=== PATIENT | female | born 1935 | race Caucasian/White ===

== ENCOUNTER 2016-12-17 23:45 | Inpatient (IN) | payer MEDICARE ==
--- NOTE | ~2016-12-17 | DS ---
Discharge Summary [facility] [address] [place]. [address] NAME: CAPRICE COY : 35 STATUS : DIS IN PAT#: [id number] AGE: 81 ADM/REG DATE : 12/18/16 MR#: [id number] REPORT SERV DATE: 12/23/16 DICTATED BY: ANUJ ZHANG DATE: 12/23/16 REPORT STATUS : Draft TRANSCRIBED BY: MODL DATE: 12/23/16 ADMISSION DATE: 12/18/2016 DISCHARGE DATE: 12/22/2016 DISCHARGE DIAGNOSES: 1. Atrial fibrillation with rapid ventricular response, metastatic melanoma with metastases to the liver, lungs, and possibly brain. 2. Acute renal failure with uremia. 3. Toxic metabolic encephalopathy. 4. Coagulopathy secondary to metastatic disease. 5. History of congestive heart failure. 6. Atrial fibrillation with rapid ventricular response. 7. Prosthetic Saint Sincere's heart valve. 8. Hypertension. CONSULTANTS DURING THIS HOSPITALIZATION: Dr. Mt Wilcox of Oncology. Dr. Riddhi Odom of Critical Care Medicine. INVASIVE PROCEDURES DONE DURING THIS HOSPITALIZATION: None. BRIEF HISTORY OF PRESENT ILLNESS: The patient is an 81-year-old female who was brought in because of abdominal pain, with weakness, somnolence, and spending a lot of time in bed. For detailed history and physical exam, please see note dictated by Dr. Jose D Craft on 12/17/2016. HOSPITAL COURSE: After being admitted to the hospital, this patient was observed. Her heart rate was controlled with using IV amiodarone and then switched to oral amiodarone. She was not a good candidate for anticoagulation. A 2-dimensional echocardiogram was done, which showed a fairly normal ejection fraction. However, this patient's overall condition was very poor. She had metastatic melanoma. She became more and more confused and encephalopathic what appeared to be uremic. Her BUN was climbed up to 77. Her creatinine went up to 1.7. Her potassium was 5.5. She continued to decline. I had a long discussion with Dr. Mt Wilcox regarding her care, and at that time, it was thought that hospice was the best option. We could not do an MRI of her brain because of pacemaker. CT of the brain was not done to look for any metastasis of the brain as if it was considered that this patient would be best served in hospice. Hospice was consulted. The patient was accepted in hospice and has been transferred to the [facility]. BRAF gene and PD-L1 mutation genes are still pending and Dr. Wilcox will follow those up. In case if this patient is positive, there may be some room to start her on immunotherapy. This patient when transferred to hospice was terminally ill. DISPOSITION: To hospice. ACTIVITY: As tolerated. DISCHARGE DIET: As tolerated. Discharge Summary [address] [address] NAME: CAPRICE COY : 35 STATUS : DIS IN PAT#: [id number] AGE: 81 ADM/REG DATE : 12/18/16 MR#: [id number] REPORT SERV DATE: 12/23/16 DICTATED BY: ANUJ ZHANG DATE: 12/23/16 REPORT STATUS : Draft TRANSCRIBED BY: QUANG DATE: 12/23/16 DISCHARGE MEDICATIONS: Will be deferred to hospice. FOLLOWUP: Will be by [facility]. More than 30 minutes spent planning this patient's discharge, discussing with the family regarding hospice and arranging hospice. DICTATED BY: Fletcher Pastrana/QUANG Anuj Zhang M.D. / [id number] CC: Fletcher Pastrana PA Darrell Johnson, M.D.
--- NOTE | ~2016-12-17 | CN ---
Consultation Report [facility] [address] [place]. [address] NAME: CARLY LOWE : 35 STATUS : REG ER PAT#: [id number] AGE: 81 ADM/REG DATE : 12/17/16 MR#: [id number] REPORT SERV DATE: 12/18/16 DICTATED BY: EVIE RUBALCAVA DATE: 12/18/16 REPORT STATUS : Draft TRANSCRIBED BY: MODL DATE: 12/18/16 PULMONARY CRITICAL CARE MEDICINE CONSULTATION DATE OF CONSULTATION: 12/18/2016 I was asked to assess Carly Lowe for ICU admission by BALDOMERO Julien the physician assist in the emergency department. Ms. Lowe is a very pleasant 81-year-old lady with underlying metastatic melanoma who was scheduled to have a right inguinal node excision with Dr. Champion in the near future. She presented to the emergency department tonight along with her daughter and son-in-law after having experienced around one week of bedridden state with increased confusion, abdominal pain, swelling, generalized weakness, and decreased urine output. She was seen by the emergency department treatment team who worked her up for possible etiologies of abdominal pain as well as basic lab work to evaluate some of her other symptoms. She was found to be anemic, hyperkalemic with acute kidney injury which appears pre-renal in nature, likely superimposed on to some degree of chronic kidney disease. She has elevated transaminases and was markedly coagulopathic with an INR of 14.2. Of note, she is on Coumadin although her family reports that it has been very difficult to regulate her Coumadin in the last few weeks due to erratic INR readings. She was awaiting cardiology clearance with Dr. Patricio Ward at [facility] to undergo her lymph node dissection with Dr. Champion, and her Coumadin is managed through that clinic. She also underwent a CT scan of the abdomen and pelvis, evaluating for sources of abdominal pain, and the radiologist's report reflected that she had new finding of diffuse metastatic disease throughout the liver as well as in the bases of the lungs in addition to the adenopathy in her abdomen which was already documented on prior scans. Of note, her PET scan performed in August was read as being negative for liver mets, and her lungs were also clear. She did have some hemorrhage within one of the larger metastatic lesions in her liver presumably secondary to her coagulopathy. She was started on Cardizem infusion for atrial fibrillation with RVR by the emergency department treatment team, and her ventricular rate was better controlled after initiation of therapy with heart rate ranging from 80 to 110 during my visit. After explaining the results of the CT scan to Ms. Lowe as well as her daughter and son-in law, we did begin a conversation with regard to overall prognosis and goals of care. Certainly her new finding of diffuse metastatic disease within the liver and lungs would likely disqualify her from undergoing any lymph node excision surgery as she is now at a stage IV. In light of her recent confusion and some facial droop, there was also question of metastatic disease in the brain, and I have recommended an MRI to further assess tomorrow. We explored the concept of DNR, and Ms. Lowe as well as her daughter were in agreement that this would be the most appropriate choice in light of the new findings on her CT scan, and Dr. Fagan and I both cosigned full DNR form this evening. We discussed the concept of palliative chemotherapy, and the plan is to consult Dr. Jiménez to assess tomorrow morning whether she may be a candidate for palliative chemo options. I did explain to Ms. Lowe that in light of the fact that she has been unable to get out of the bed for the last week that her ECOG status may not be compatible with undergoing cytotoxic therapy, and we Consultation Report [address] [place]. [address] NAME: CARLY LOWE : 35 STATUS : REG ER PAT#: [id number] AGE: 81 ADM/REG DATE : 12/17/16 MR#: [id number] REPORT SERV DATE: 12/18/16 DICTATED BY: EVIE RUBALCAVA DATE: 12/18/16 REPORT STATUS : Draft TRANSCRIBED BY: MODL DATE: 12/18/16 did introduce the concept of hospice as an option for treatment. Ms. Lowe and her daughter were open to this concept, and we did discuss the various levels of a hospice care and the way that referral process works in the inpatient setting. Ms. Lowe's daughter has expressed an interest in meeting with Dr. Gan and the palliative care team on Monday in addition to meeting with Dr. Jiménez to discuss potential treatment options. They have also asked for a consult to be placed to the sheet hanger to see her tomorrow. Case was discussed with Hugo Roland as well as Dr. Fagan in the emergency department and doctors Luana and Silva from [facility] who will now be admitting the patient to a private room on the floor to undergo ongoing management and workup including a brain MRI, ongoing rate control for atrial fibrillation (Dr. Garcias was consulted by Hugo Roland in the emergency department this evening, is aware of her case), and additional medical management as appropriate. She is a full DNR, and that order has been placed on the chart. Critical Care Medicine will sign off and be available for re-evaluation on an as-needed basis. Please call if we may be of additional assistance. TAMAR/QUANG Evie Rubalcava MD / [id number] CC: BALDOMERO Julien
--- NOTE | ~2016-12-17 | HP ---
History And Physical [place] [id number] [facility] [place]. [address] NAME: CAPRICE LOWE : 35 STATUS : REG ER PAT#: [id number] AGE: 81 ADM/REG DATE : 12/17/16 MR#: [id number] REPORT SERV DATE: 12/18/16 DICTATED BY: MICHELE RODRIGUEZ DATE: 12/18/16 REPORT STATUS : Draft TRANSCRIBED BY: MODL DATE: 12/18/16 DATE OF ADMISSION: 12/17/2016 CHIEF COMPLAINT: Abdominal pain. HISTORY OF PRESENT ILLNESS: This is an 81-year-old female with extensive metastatic melanoma, metastatic disease to the liver and lungs, who started having increasing pain in her abdomen to the point that family decided to bring her to the emergency room. She is under the care of Dr. Mt Wilcox and Dr. Champion, from Oncology for her melanoma. History is obtained from the patient and her family at bedside. We also reviewed data available on the [employer] system. According to Mrs. Lowe who is a good historian, she had been having increasing abdominal pain, weakness, and somnolence and has been spending a lot of time in bed. In the last 24- 36 hours, the pain has become quite severe, and she has severe pain even turning from side to side. The family decided to bring her to the emergency room to be evaluated. In the emergency room, initial workup revealed that she had atrial fibrillation with rapid ventricular response along with significant metastatic disease to the liver and lungs. She has some encephalopathy during this time, and she might have some metastatic disease to the brain. She also had acute renal failure, anemia, and coagulopathy probably secondary to her metastatic disease. Hospitalist Service is asked to admit her for further evaluation and treatment. Actually they had called palliative care consultation, and Dr. Odom, from Critical Care Medicine has seen the patient, discussed her status with her daughter and son- in-law who are at bedside. The patient was subsequently made do not resuscitate, and hospitalist was called to admit the patient. At the time of my evaluation, Mrs. Lowe was alert and awake, oriented, she was quite tearful. She did have considerable abdominal pain even after she got some narcotic from the ER. She denied any chest pain. She denied any orthopnea. She did not have any cough, hemoptysis, night sweats, or weight loss. She has not had any recent falls or loss of consciousness. She has not had any fevers or chills. No nausea or vomiting. No other bleeding from anywhere at this point. PAST MEDICAL HISTORY: Significant for history of metastatic melanoma with metastatic disease to liver and lung, possibly other places. She has a history of congestive heart failure with very low ejection fraction, history of prosthetic heart valve with a Saint Sincere's valve, history of pacemaker placement, scoliosis, hypertension, and hypercholesterolemia. SOCIAL HISTORY: She does not smoke, drink, or use recreational drugs. FAMILY HISTORY: Noncontributory. MEDICATIONS: Her medications at home were reviewed by me in the chart today and reordered by me. History And Physical [address] [address] NAME: CAPRICE LOWE : 35 STATUS : REG ER PAT#: [id number] AGE: 81 ADM/REG DATE : 12/17/16 MR#: [id number] REPORT SERV DATE: 12/18/16 DICTATED BY: MICHELE RODRIGUEZ DATE: 12/18/16 REPORT STATUS : Draft TRANSCRIBED BY: QUANG DATE: 12/18/16 REVIEW OF SYSTEMS: As in history of present illness. All other systems were reviewed in detail and are quite unremarkable. PHYSICAL EXAMINATION: GENERAL: This is a pleasant 81-year old, not in any acute distress. She is in quite a bit of discomfort due to her abdominal pain. HEENT: Her head appears to be atraumatic, normocephalic. Pupils are equal, reacting to light and accommodating. External ocular muscles are intact. Membranes are moist and pink. Sclerae are nonicteric. NECK: Supple with no jugular venous distention, lymphadenopathy, or thyromegaly. LUNGS: Clear to auscultation with no wheezes, rubs, or crackles. HEART: Heart sounds were irregularly irregular. ABDOMEN: Abdomen was soft but tenderness to palpation diffusely all over. EXTREMITIES: Extremities showed no cyanosis, clubbing, or edema. NEUROLOGIC: Grossly intact. No focal deficits. She was able to move all four extremities. VITAL SIGNS: Her temperature today was 98.2, pulse 143, respirations 18 a minute, her blood pressure was 111/67, oxygen saturations were 95%, breathing 2 L of oxygen via nasal cannula. LABORATORY DATA: Reviewed on the [employer] system showed a sodium of 137, potassium 5.5, chloride 99, CO2 of 27. BUN was 68 with a creatinine of 2.78. Her blood glucose was 90. Her alkaline phosphatase was 468 today. ALT was 355, AST 707. Lipase was 151. Troponin was 0.04, and lactate was 1.9. [place] [address], hemoglobin was 9.6, hematocrit 29.3, and platelet count was 260,000. Her prothrombin time was 104.2 with an INR of 14.2. Films of the CT scan of her abdomen and pelvis were reviewed by me on the PACS today and interpreted by me. Per my interpretation, there is diffuse hepatic and lung metastatic disease with hemoperitoneum. One of the liver lesions show intralesional hemorrhage as well. A 12-lead EKG done in emergency room was reviewed and interpreted by me. There is atrial fibrillation with rapid ventricular response at a rate of 130 per minute. There are no ST-T changes. IMPRESSION: 1. Atrial fibrillation with rapid ventricular response. 2. Altered mental status. 3. Metastatic melanoma with metastatic disease to liver, lung, and possibly the brain. 4. Acute renal failure. 5. Anemia. 6. Coagulopathy secondary to metastatic disease of the liver. 7. Congestive heart failure. 8. Prosthetic Saint Sincere's heart valve. 9. Hypertension. PLAN: We will admit Mrs. Lowe to the Hospitalist Service with telemetry. We will go ahead History And Physical [address] [address] NAME: CAPRICE LOWE : 35 STATUS : REG ER PAT#: [id number] AGE: 81 ADM/REG DATE : 12/17/16 MR#: [id number] REPORT SERV DATE: 12/18/16 DICTATED BY: MICHELE RODRIGUEZ DATE: 12/18/16 REPORT STATUS : Draft TRANSCRIBED BY: MODL DATE: 12/18/[address] Lindsay from Palliative Care who will be involved in the morning. The patient's family has agreed for DNR status. We will start her on IV fluids for volume resuscitation and start her on pain control with Dilaudid on an as-needed basis. We will also continue her Cardizem infusion for rapid ventricular response, it was started in the ER as per protocol. We will follow chemistry, CBC in the morning. We will also consult her oncologist, Dr. Mt Wilcox and Dr. Lindsay will be seeing her from palliative care standpoint. I have discussed the above plans with the patient and the family. They are in agreement to the above recommendations. Further recommendations will follow after Dr. Lindsay has had a chance to talk to them. Hospitalist Service will be following her during her stay here. /QUANG Michele Rodriguez M.D. / [id number] CC: BALDOMERO Julien
[~2016-12-17 23:45] MED LIST: *UNABLE2; C5 PO; CALTRA600D PO; CENTRUM TAB1 TAB PO; CITRACAL PO; COREG12 PO; JANTOVEN1 MG PO; JANTOVEN6 MG PO; KEPPRA500 PO; L40 PO; LIDODERM T; LISINOPRIL40 MG PO; LOP25 PO; LOP50 PO; LORTAB 5 PO; LOVENOX60 SC; MULTIPLE VIT PO; MULTIVIT/MIN PO; NEUR600 PO; NORCO1 TA1 PO; NORCO1 TA2 PO; OS500+D PO; OXYCON10 PO; OXYCON20 PO; PREMPRO1 TAB PO; PRILO PO; PROTONIX PO; SEROQUEL1C PO; SEROQUEL200 MG PO; SPIRO25 PO; VALTREX1 GM PO; ZOCOR20 PO; ZOL100 PO; ZOL50 PO
[2016-12-18 01:16] LABS: BASOPHILS 0.1 %; BASOPHILS ABSOLUTE 0.01 10/3/uL (0.0-0.16); EOSINOPHILS 0.1 %; EOSINOPHILS ABSOLUTE 0.01 10/3/uL (0.0-0.53); HEMOGLOBIN 9.6 g/dL (12.0-16.0); IMMATURE GRANULOCYTES 0.9 %; IMMATURE GRANULOCYTES ABSOLUTE 0.09 10/3/uL (0.0-0.11); LYMPHOCYTES 9.3 %; LYMPHOCYTES ABSOLUTE 0.93 10/3/uL (0.67-4.30); MEAN CORPUS HGB CONC 32.8 g/dL (32.0-36.0); MEAN PLATELET VOLUME 10.2 fL (9.2-13.0); MONOCYTES 8.6 %; MONOCYTES ABSOLUTE 0.86 10/3/uL (0.21-1.20); RBC DISTRIBUTION WIDTH 15.1 % (12.0-16.0); RED CELL COUNT 3.15 10/6/uL (4.0-5.6)
[2016-12-18 01:17] LABS: HEMATOCRIT 29.3 % (36.0-48.0); MANUAL DIFF NO %; MEAN CORPUSCULAR HEMOGLOB 30.5 pg (26.0-34.0); PLATELET COUNT 260 10/3/uL (150-400)
[2016-12-18 01:33] LABS: ALBUMIN 3.1 G/DL (3.5-5.0); ALKALINE PHOSPHATASE 468 U/L (45-117); BUN (BLOOD UREA NITROGEN) 68 MG/DL (6-23); CALCIUM, SERUM 8.5 MG/DL (8.5-10.4); CHLORIDE, SERUM 99 MMOL/L (96-112); CO2 (CARBON DIOXIDE) 27 MMOL/L (24-34); CREATININE 2.78 MG/DL (0.55-1.02); GFR AFRICAN AMERICAN 18 ML/MIN (>=60); GFR NON AFRICAN AMERICAN 15 ML/MIN (>=60); GLOBULIN 3.2 G/DL (2.5-4.1); GLUCOSE, SERUM 90 MG/DL (60-99); POTASSIUM, SERUM 5.5 MMOL/L (3.5-5.3); SGOT(AST) 707 U/L (5-40); SGPT(ALT) 355 U/L (5-65); SODIUM, SERUM 137 MMOL/L (135-148); TOTAL BILIRUBIN 1.3 MG/DL (0-1.2); TOTAL PROTEIN 6.3 G/DL (6.0-8.5); TROPONIN I 0.04 NG/ML (<0.05)
[2016-12-18 01:37] LABS: LACTATE 1.9 MMOL/L (0.3-2.4)
[2016-12-18 01:57] LABS: PARTIAL THROMBO TIME 83.9 SEC (22.5-37.2)
[2016-12-18 02:00] LABS: ASCORBIC ACID (UR NOT ORDER) NEG (NEG); BILIRUBIN, URINE NEGATIVE (NEG); ER URINALYSIS TAT 0 Hrs 00 Mins; KETONE, URINE NEGATIVE (NEG); LEUKOCYTE ESTERASE(NOT OR NEG (NEG); NITRITE (URINE) NEG (NEG); WBC (NOT ORDERED) (RFLEX) 1 (0-5)
[2016-12-18 02:00] LABS: INTERNATIONAL NORMAL RATI 14.2 UNITS (-); PROTIME (NOT ORD) 104.2 SEC (12.0-14.5)
[2016-12-19 06:03] LABS: INTERNATIONAL NORMAL RATI 1.5 UNITS (-)
[2016-12-19 06:04] LABS: PROTIME (NOT ORD) 17.9 SEC (12.0-14.5)
[2016-12-19 06:09] LABS: BASOPHILS 0.4 %; BASOPHILS ABSOLUTE 0.03 10/3/uL (0.0-0.16); EOSINOPHILS 0.4 %; EOSINOPHILS ABSOLUTE 0.03 10/3/uL (0.0-0.53); HEMATOCRIT 24.3 % (36.0-48.0); HEMOGLOBIN 7.9 g/dL (12.0-16.0); IMMATURE GRANULOCYTES ABSOLUTE 0.16 10/3/uL (0.0-0.11); LYMPHOCYTES ABSOLUTE 0.95 10/3/uL (0.67-4.30); MANUAL DIFF NO %; MEAN CORPUS HGB CONC 32.5 g/dL (32.0-36.0); MEAN CORPUSCULAR HEMOGLOB 30.3 pg (26.0-34.0); MEAN CORPUSCULAR VOLUME 93.1 fL (80-100); MEAN PLATELET VOLUME 10.3 fL (9.2-13.0); MONOCYTES 9.6 %; MONOCYTES ABSOLUTE 0.76 10/3/uL (0.21-1.20); NEUTROPHILS 75.6 %; NEUTROPHILS ABSOLUTE 5.96 10/3/uL (2.02-8.40); NUCLEATED RED BLOOD CELLS 1.4 /100WBC (0-0); PLATELET COUNT 190 10/3/uL (150-400); RBC DISTRIBUTION WIDTH 15.3 % (12.0-16.0); RED CELL COUNT 2.61 10/6/uL (4.0-5.6); WHITE BLOOD CELLS 7.9 10/3/uL (4.5-10.5)
[2016-12-19 06:17] LABS: A/G RATIO 0.9 (0.7-1.9); ALBUMIN 2.6 G/DL (3.5-5.0); CALCIUM, SERUM 7.7 MG/DL (8.5-10.4); CHLORIDE, SERUM 103 MMOL/L (96-112); GLOBULIN 2.9 G/DL (2.5-4.1); GLUCOSE, SERUM 105 MG/DL (60-99); POTASSIUM, SERUM 4.7 MMOL/L (3.5-5.3); SGOT(AST) 639 U/L (5-40); SGPT(ALT) 330 U/L (5-65); SODIUM, SERUM 135 MMOL/L (135-148); TOTAL BILIRUBIN 1.7 MG/DL (0-1.2); TOTAL PROTEIN 5.5 G/DL (6.0-8.5)
[2016-12-19 06:19] LABS: ALKALINE PHOSPHATASE 546 U/L (45-117); BUN (BLOOD UREA NITROGEN) 72 MG/DL (6-23); CO2 (CARBON DIOXIDE) 21 MMOL/L (24-34); CREATININE 2.19 MG/DL (0.55-1.02); GFR AFRICAN AMERICAN 24 ML/MIN (>=60); GFR NON AFRICAN AMERICAN 20 ML/MIN (>=60)
[2016-12-19] MEDS ORDERED: GABAPENTIN (17:27)
[2016-12-19] MEDS ORDERED: LASIX (17:27)
[2016-12-19] MEDS ORDERED: COREG (17:27)
[2016-12-19] MEDS ORDERED: NORCO (17:28)
[2016-12-19] MEDS ORDERED: KEPPRA (17:28)
[2016-12-19] MEDS ORDERED: LISINOPRIL (17:28)
[2016-12-19] MEDS ORDERED: *UNABLE2 (17:28)
[2016-12-19] MEDS ORDERED: SEROQUEL (17:29)
[2016-12-19] MEDS ORDERED: LOPRESSOR (17:29)
[2016-12-19] MEDS ORDERED: ZOCOR (17:29)
[2016-12-19] MEDS ORDERED: PRILOSEC (17:29)
[2016-12-19] MEDS ORDERED: ZOLOFT (17:29)
[2016-12-19] MEDS ORDERED: SPIRONOLACTONE (17:29)
[2016-12-19] MEDS ORDERED: WARFARIN (17:30)
[2016-12-20 08:32] LABS: INTERNATIONAL NORMAL RATI 1.3 UNITS (-); PROTIME (NOT ORD) 16.2 SEC (12.0-14.5)
[2016-12-20 08:37] LABS: BASOPHILS 0.2 %; BASOPHILS ABSOLUTE 0.02 10/3/uL (0.0-0.16); EOSINOPHILS 0.1 %; EOSINOPHILS ABSOLUTE 0.01 10/3/uL (0.0-0.53); HEMOGLOBIN 9.1 g/dL (12.0-16.0); IMMATURE GRANULOCYTES 2.3 %; IMMATURE GRANULOCYTES ABSOLUTE 0.25 10/3/uL (0.0-0.11); LYMPHOCYTES 7.3 %; MEAN CORPUS HGB CONC 31.8 g/dL (32.0-36.0); MEAN CORPUSCULAR VOLUME 94.4 fL (80-100); MEAN PLATELET VOLUME 10.2 fL (9.2-13.0); MONOCYTES 5.8 %; MONOCYTES ABSOLUTE 0.64 10/3/uL (0.21-1.20); NEUTROPHILS 84.3 %; NEUTROPHILS ABSOLUTE 9.24 10/3/uL (2.02-8.40); PLATELET COUNT 189 10/3/uL (150-400); RBC DISTRIBUTION WIDTH 16.4 % (12.0-16.0); RED CELL COUNT 3.03 10/6/uL (4.0-5.6)
[2016-12-20 08:38] LABS: HEMATOCRIT 28.6 % (36.0-48.0); MANUAL DIFF NO %
[2016-12-20 08:43] LABS: A/G RATIO 0.9 (0.7-1.9); ALBUMIN 2.5 G/DL (3.5-5.0); CALCIUM, SERUM 8.4 MG/DL (8.5-10.4); CHLORIDE, SERUM 104 MMOL/L (96-112); CO2 (CARBON DIOXIDE) 20 MMOL/L (24-34); GLOBULIN 2.9 G/DL (2.5-4.1); GLUCOSE, SERUM 117 MG/DL (60-99); PHOSPHORUS, SERUM 2.9 MG/DL (2.5-4.5); SGPT(ALT) 303 U/L (5-65); SODIUM, SERUM 134 MMOL/L (135-148); TOTAL PROTEIN 5.4 G/DL (6.0-8.5)
[2016-12-20 08:44] LABS: ALKALINE PHOSPHATASE 649 U/L (45-117); BUN (BLOOD UREA NITROGEN) 57 MG/DL (6-23); CREATININE 1.33 MG/DL (0.55-1.02); GFR AFRICAN AMERICAN 43 ML/MIN (>=60); GFR NON AFRICAN AMERICAN 37 ML/MIN (>=60); TOTAL BILIRUBIN 2.8 MG/DL (0-1.2)
[2016-12-20 09:01] LABS: PLATELET ESTIMATE ADQ (ADEQUATE); RBC MORPHOLOGY NORM (NORMAL)
[2016-12-20 09:04] LABS: SGOT(AST) 498 U/L (5-40)
[2016-12-21 06:19] LABS: BASOPHILS 0.3 %; BASOPHILS ABSOLUTE 0.03 10/3/uL (0.0-0.16); EOSINOPHILS 0.1 %; EOSINOPHILS ABSOLUTE 0.01 10/3/uL (0.0-0.53); HEMATOCRIT 30.7 % (36.0-48.0); IMMATURE GRANULOCYTES 2.8 %; IMMATURE GRANULOCYTES ABSOLUTE 0.33 10/3/uL (0.0-0.11); INTERNATIONAL NORMAL RATI 1.4 UNITS (-); LYMPHOCYTES 11.4 %; LYMPHOCYTES ABSOLUTE 1.35 10/3/uL (0.67-4.30); MANUAL DIFF NO %; MEAN CORPUS HGB CONC 32.6 g/dL (32.0-36.0); MEAN CORPUSCULAR HEMOGLOB 31.1 pg (26.0-34.0); MEAN CORPUSCULAR VOLUME 95.3 fL (80-100); MEAN PLATELET VOLUME 10.9 fL (9.2-13.0); MONOCYTES 9.4 %; MONOCYTES ABSOLUTE 1.11 10/3/uL (0.21-1.20); NEUTROPHILS ABSOLUTE 8.99 10/3/uL (2.02-8.40); PLATELET COUNT 187 10/3/uL (150-400); PROTIME (NOT ORD) 16.9 SEC (12.0-14.5); RBC DISTRIBUTION WIDTH 17.6 % (12.0-16.0); RED CELL COUNT 3.22 10/6/uL (4.0-5.6); WHITE BLOOD CELLS 11.8 10/3/uL (4.5-10.5)
[2016-12-21 06:29] LABS: A/G RATIO 0.9 (0.7-1.9); ALBUMIN 2.5 G/DL (3.5-5.0); CALCIUM, SERUM 8.4 MG/DL (8.5-10.4); CHLORIDE, SERUM 106 MMOL/L (96-112); CO2 (CARBON DIOXIDE) 18 MMOL/L (24-34); CREATININE 1.57 MG/DL (0.55-1.02); GFR AFRICAN AMERICAN 35 ML/MIN (>=60); GFR NON AFRICAN AMERICAN 31 ML/MIN (>=60); GLOBULIN 2.8 G/DL (2.5-4.1); GLUCOSE, SERUM 97 MG/DL (60-99); PHOSPHORUS, SERUM 3.5 MG/DL (2.5-4.5); POTASSIUM, SERUM 5.1 MMOL/L (3.5-5.3); SGOT(AST) 604 U/L (5-40); SGPT(ALT) 377 U/L (5-65); SODIUM, SERUM 136 MMOL/L (135-148); TOTAL BILIRUBIN 2.8 MG/DL (0-1.2); TOTAL PROTEIN 5.3 G/DL (6.0-8.5)
[2016-12-21 06:31] LABS: ALKALINE PHOSPHATASE 589 U/L (45-117); BUN (BLOOD UREA NITROGEN) 67 MG/DL (6-23)
[2016-12-22 05:46] LABS: A/G RATIO 0.9 (0.7-1.9); ALBUMIN 2.6 G/DL (3.5-5.0); CALCIUM, SERUM 8.6 MG/DL (8.5-10.4); CHLORIDE, SERUM 105 MMOL/L (96-112); CO2 (CARBON DIOXIDE) 17 MMOL/L (24-34); CREATININE 1.77 MG/DL (0.55-1.02); GFR AFRICAN AMERICAN 31 ML/MIN (>=60); GFR NON AFRICAN AMERICAN 26 ML/MIN (>=60); GLOBULIN 2.9 G/DL (2.5-4.1); GLUCOSE, SERUM 99 MG/DL (60-99); PHOSPHORUS, SERUM 3.8 MG/DL (2.5-4.5); SGPT(ALT) 355 U/L (5-65); SODIUM, SERUM 134 MMOL/L (135-148); TOTAL PROTEIN 5.5 G/DL (6.0-8.5)
[2016-12-22 05:48] LABS: ALKALINE PHOSPHATASE 523 U/L (45-117); BUN (BLOOD UREA NITROGEN) 77 MG/DL (6-23); POTASSIUM, SERUM 5.5 MMOL/L (3.5-5.3); SGOT(AST) 502 U/L (5-40); TOTAL BILIRUBIN 3.8 MG/DL (0-1.2)
[2016-12-22 07:34] LABS: HEMATOCRIT 33.3 % (36.0-48.0); HEMOGLOBIN 10.7 g/dL (12.0-16.0); MEAN CORPUS HGB CONC 32.1 g/dL (32.0-36.0); MEAN CORPUSCULAR HEMOGLOB 30.7 pg (26.0-34.0); MEAN CORPUSCULAR VOLUME 95.4 fL (80-100); MEAN PLATELET VOLUME 10.9 fL (9.2-13.0); PLATELET COUNT 167 10/3/uL (150-400); RBC DISTRIBUTION WIDTH 19.4 % (12.0-16.0); RED CELL COUNT 3.49 10/6/uL (4.0-5.6); WHITE BLOOD CELLS 13.4 10/3/uL (4.5-10.5)
[2016-12-22 07:35] LABS: MANUAL DIFF YES %
[2016-12-22 07:37] LABS: INTERNATIONAL NORMAL RATI 1.4 UNITS (-); PROTIME (NOT ORD) 17.2 SEC (12.0-14.5)
[2016-12-22 07:54] LABS: ANISOCYTOSIS 1+ (5-10/OIF) (0-5/OIF); BAND NEUTROPHILS 3 %; IMMATURE GRANS ABSOLUTE (CALC) 0.13 10/3/uL (0.0-0.11); LYMPHOCYTES 7 %; LYMPHOCYTES ABSOLUTE (CALC) 0.94 10/3/uL (0.67-4.30); METAMYELOCYTES 1 %; MONOCYTES 4 %; MONOCYTES ABSOLUTE (CALC) 0.54 10/3/uL (0.21-1.20); NEUTROPHILS ABSOLUTE (CALC) 11.79 10/3/uL (2.02-8.40); PLATELET ESTIMATE ADQ (ADEQUATE); POLYCHROMASIA 1+ (2-5/OIF) (0-1/OIF); SEGMENTED NEUTROPHIL (0) 85 %; TOTAL NUCLEATED CELLS 100
[2016-12-22] MEDS ORDERED: JANTOVEN7.5 MG PO (15:02)
[2016-12-22] MEDS ORDERED: ZOL100 PO (15:02)
[2016-12-22] MEDS ORDERED: COREG12 PO (15:02)
[2016-12-22] MEDS ORDERED: PRILO PO (15:03)
[2016-12-22] MEDS ORDERED: SEROQUEL200 MG PO (15:03)
[2016-12-22] MEDS ORDERED: SPIRO25 PO (15:03)
[2016-12-22] MEDS ORDERED: L40 PO (15:03)
[2016-12-22] MEDS ORDERED: KEPPRA500 PO (15:04)
[2016-12-22] MEDS ORDERED: NEUR600 PO (15:04)
[2016-12-22] MEDS ORDERED: NORCO1 TA1 PO (15:05)
[2016-12-22] MEDS ORDERED: LISINOPRIL40 MG PO (15:12)
== END 2016-12-22 21:55 | disposition hospice, inpatient (51) | DRG 308 ==
LOC: ER 23:45 → 2SO 12-18 06:17
PROVIDERS: Hospitalist; Internal Medicine; Nurse Practitioner Acute Care
DX: I48.0 Paroxysmal atrial fibrillation (principal); G92 Toxic encephalopathy; E43 Unspecified severe protein-calorie malnutrition; N17.9 Acute kidney failure, unspecified; C78.01 Secondary malignant neoplasm of right lung; I13.0 Hypertensive heart and chronic kidney disease with heart failure and stage 1 through stage 4 chronic kidney disease, or unspecified chronic kidney disease; D68.9 Coagulation defect, unspecified; C78.02 Secondary malignant neoplasm of left lung; E87.5 Hyperkalemia; I50.22 Chronic systolic (congestive) heart failure; C79.31 Secondary malignant neoplasm of brain; C78.7 Secondary malignant neoplasm of liver and intrahepatic bile duct; I25.5 Ischemic cardiomyopathy; N18.9 Chronic kidney disease, unspecified; Z51.5 Encounter for palliative care; D63.0 Anemia in neoplastic disease; Z66 Do not resuscitate; K76.89 Other specified diseases of liver; E78.00 Pure hypercholesterolemia, unspecified; Z68.23 Body mass index [BMI] 23.0-23.9, adult; Z85.820 Personal history of malignant melanoma of skin; Z95.2 Presence of prosthetic heart valve
CPT/HCPCS: 36415; 36430; 71010; 74176; 80053; 80069; 81001; 82533; 83605; 83690; 83735; 84100; 84484; 85025; 85610; 85730; 86850; 86870; 86900; 86901; 87040; 93005; 96365; 96366; 99291; 99292; A9270-GY; J0282; J1170; J2405; J3430; P9059